=== PATIENT | female | born 1980 | race Caucasian/White ===

== ENCOUNTER 2020-02-08 17:26 | Emergency (ER) | payer OTHER, SELFPAY ==
[2020-02-08 17:28] VITALS: BP 124/86; PULSE 79; RESP 16; TEMP 36.1; O2SAT 99; BMI 19.5
[2020-02-08 17:31] VITALS: BP 124/86; PULSE 90; RESP 16; TEMP 36.1; O2SAT 99
--- NOTE | 2020-02-08 17:57 | EKG12_ITS ---
Test Reason : CP Blood Pressure : / mmHG Vent. Rate : 068 BPM Atrial Rate : 068 BPM P-R Int : 154 ms QRS Dur : 118 ms QT Int : 440 ms P-R-T Axes : 053 093 046 degrees QTc Int : 467 ms Normal sinus rhythm Right bundle branch block Abnormal ECG Confirmed by JASIEL IGLESIAS, MARY GRACE ([id number]), publications editor MILIND HICKMAN ([id number]) on 02/12/2020 9:43:24 AM Referred By: Confirmed By:MARY GRACE WEATHERS MD
--- NOTE | 2020-02-08 18:30 | RAD_ITS ---
STUDY: X-RAY CHEST REASON FOR EXAM: Female, 39 years old. C/O HEART PALPITATIONS, SOB, H/A TECHNIQUE: Single AP portable view of the chest. COMPARISON: None. FINDINGS: The lungs are clear and expanded. There is no demonstrated pleural abnormality. Normal size heart. Normal mediastinum and mae. Normal visualized pulmonary arteries. Normal visualized aortic arch and descending thoracic aorta. Normal visualized thoracic spine. Normal visualized ribs, clavicles, and shoulders. There is no demonstrated abnormality of the visualized soft tissue structures of the upper abdomen. RAD/Chest 1 View (Portable) IMPRESSION: Normal x-ray examination of the chest. Electronically Signed: Dianelys Kohli MD at 19:31 EST Tel , Service support ,
[2020-02-08 19:01] VITALS: BP 154/89; PULSE 67; RESP 18; TEMP 36.1; O2SAT 98
--- NOTE | 2020-02-08 19:08 | ED.VIS.GEN ---
History of Present Illness Chief Complaint: Shortness of Breath Informant: Patient Onset: Today Context: Gradual Onset Timing: Continuous Quality: Sharp Location: Central chest pain Current Severity: Minimal discomfort presently Maximum Severity: Moderate Worsened by: Supine position Relieved by: Nothing Associated Symptoms: Probable Covid infection 2 weeks ago Narrative: Patient is a 39-year-old former smoker who presents because of chest discomfort that radiates to her left shoulder associate with shortness of breath and is positional. States pain is worse when she is supine. She denies dyspnea on exertion. She denies orthopnea or PND. She denies pleuritic chest pain. She presently denies rhinorrhea, congestion or sore throat. She states her taste and smell has returned to normal. She does report global headache. Denies photophobia, neck pain or neck stiffness. She presently denies myalgias arthralgias. She denies nausea or vomiting. She denies diarrhea. She denies urologic symptoms. She denies rash. Denies history of VTE. She denies leg pain, swelling discoloration. She has no risk factors for VTE. Prior similar symptoms: No Recent Illness/Hospitalization: Yes - Probable Covid infection - Past Medical History (1) No significant past medical history Status: Acute Past Medical History - Allergies and Home Meds Allergies/Adverse Reactions: Allergies No Known Allergies Allergy (Verified 02/20/14 09:51) Primary Care Physician: Kaleigh Corral MD [Primary Care Provider] - Past Medical History: None Surgical History: noncontributory Lives: With Family Smoking Status: Former smoker Alcohol: None Drugs: None Review of Systems General: Denies: Chills, Fever, Malaise, Subjective, Sweats Eyes: Denies: Visual changes - bilaterally, Blurred Vision - bilaterally ENT: Denies: Bilateral ear pain, Rhinorrhea, Sore throat Cardiovascular: Reports: Chest pain. Denies: Palpitations, Heart racing Respiratory: Reports: Dyspnea. Denies: Cough, Sputum, Dyspnea on exertion, Orthopnea, Paroxysmal nocturnal dyspnea Gastrointestinal: Denies: Abdominal pain, Nausea, Vomiting, Diarrhea, Melena, Hematochezia Genitourinary: Denies: Dysuria, Hematuria, Frequency Musculoskeletal: Denies: Myalgias, Arthralgias, Neck pain, Back pain, Swelling, Extremity Pain, -, - Skin: Denies: Rash, Wounds Psych: Denies: Depression, Anxiety Endocrine: Denies: Polyuria, Polydipsia Hematologic: Denies: Easy bruising, Easy bleeding Allergy: Denies: Uticaria, Swelling of the mouth Physical Exam Vital Signs/Narrative: Vital Signs Temp Pulse Resp BP Pulse Ox 02/08/20 19:01 96.9 F L 67 18 154/89 H 98 02/08/20 17:31 96.9 F L 90 16 124/86 H 99 02/08/20 17:28 96.9 F L 79 16 124/86 H 99 General: Well nourished, Well developed, No Acute Distress Head: Normocephalic, Atraumatic Eyes: Perrl, EOMI. Negative for: Pale conjunctiva, Scleral icterus ENT: Moist mucous membranes, No rhinorrhea, TM's clear Neck: Supple, Nontender, No lymphadenopathy, No JVD, - - Trachea is midline. There is no inspiratory expiratory stridor. Cardiovascular: Regular rate, Regular rhythm, No murmurs, Normal S1, Normal S2 Respiratory: No distress, CTA bilaterally, Chest nontender Abdomen: Soft, Nontender, Nondistended, Normal bowel sounds Extremities: Nontender, No edema, - - There is no asymmetry, swelling, discoloration, leg vein distention, palpable cords or tenderness along the distribution of the deep venous system. Skin: Normal color, No rash, No Trauma. Negative for: Cyanosis, Diaphoresis, Jaundice Neurological: Alert, Oriented x3, Cranial nerves II-XII grossly intact, Normal Strength, Normal Sensation Psychological: Depressed Diagnostic/Tx/Re-eval Chest X-Ray - ED: 1 View, Read by ED Physician, Normal, Heart, Mediastinum, Bony Structures, No Acute Disease, - - Extremities interpreted by me at 1924. Patient has slight hyper aeration. There is no infiltrate, effusion or pneumothorax. Cardiac silhouette is normal. Cardiac size is normal. Impressions Chest X-Ray 02/08/20 18:30 IMPRESSION: Normal x-ray examination of the chest. Electronically Signed: Dianelys Kohli MD at 19:31 EST Tel , Service support , 02/08/20 18:30 Chest 1 View (Portable) [RAD] Stat Laboratory Results 02/08/20 02/08/20 02/08/20 18:58 18:58 18:58 WBC 8.8 RBC 4.38 Hgb 12.9 Hct 39.9 MCV 91.1 MCH 29.5 MCHC 32.3 RDW Std Deviation 42.8 RDW Coeff of [place] 12.7 Plt Count 200 MPV 10.6 Immature Gran % (Auto) 0.300 Neut % (Auto) 64.0 Lymph % (Auto) 25.8 Morton % (Auto) 8.8 Eos % (Auto) 0.8 Baso % (Auto) 0.3 Absolute Neuts (auto) 5.6 Absolute Lymphs (auto) 2.28 Nucleated RBC % 0 ESR 2 PT 13.0 INR 1.0 Sodium 139 Potassium 3.3 L Chloride 110 H Carbon Dioxide 21.0 Anion Gap 8 BUN 10 Creatinine 0.60 Estim Creat Clear Calc 116.26 Est GFR (MDRD) Af Amer 143 Est GFR (MDRD) Non-Af 118 BUN/Creatinine Ratio 16.6 Glucose 87 Calcium 9.2 Troponin I < 0.015 Since work-up is negative. ESR is negative. - EKG Initial EKG Interpretation: Sinus Rhythm - Sinus rhythm with a ventricular rate of 68. There is evidence of right bundle branch block. ME interval is 154 ms. Durations 118 ms. QT duration 4 and 40 ms. [place] to the right. - Medical Decision Making With chest pain that radiates to left shoulder trapezius area and is worse when she is supine need to obtain possibility of pericarditis, myocarditis. This may be noncardiac in etiology as well. Chest x-ray was obtained to evaluate for pulmonary etiology. Appropriate blood work was ordered as well. ED Disposition - Plan for ED Patient: Disposition: Home or Assisted Living Diagnosis: Dyspnea due to COVID-19, Chest pain Instructions: ED Dyspnea Referrals: Kaleigh Corral MD [Primary Care Provider] - 10-14 Days if not better Additional Instructions: Aced on your symptoms and started 2 weeks ago you probably had Covid. Your symptoms presently may be due to Covid and you may have symptoms for potentially several weeks to months.
[2020-02-08 19:23] LABS: Absolute Lymphocyte Count 2.28 X10^3/uL (0.83-4.51); Absolute Neutrophil Count 5.6 X10^3/uL (2.0-7.7); Basophil# 0.03 X10^3/uL; Basophil% 0.3 % (0-1); Eosinophil# 0.07 X10^3/uL; Eosinophils% 0.8 % (0-5); Hematocrit 39.9 % (37-47); Hemoglobin 12.9 g/dL (12.0-15.0); Lymphocyte # 2.28 X10^3/ul (4.0); Lymphocyte % 25.8 % (19-41); Mean Corp Hgb Conc 32.3 g/dL (32-36); Mean Corpuscular Hgb 29.5 pg (27.0-32.0); Mean Corpuscular Volume 91.1 fL (81-99); Mean Platelet Vol. 10.6 fl (6.2-12.0); Monocyte# 0.78 X10^3/uL; Monocyte% 8.8 % (0-10); NRBC Flagged by Analyzer 0 % (0-5); Neutrophil # 5.64 X10^3/uL (2.7-7.7); Platelet Count 200 K/mm3 (150-450); RBC Distribution Width CV 12.7 % (11.6-14.6); RBC Distribution Width SD 42.8 fl (35.1-43.9); Red Blood Count 4.38 M/mm3 (4.2-5.4); White Blood Count 8.8 K/mm3 (4.4-11.0)
[2020-02-08 19:29] LABS: Erythrocyte Sedimentation Rate 2 mm/hr (0-20)
[2020-02-08 19:47] VITALS: O2SAT 97
[2020-02-08 20:00] LABS: Anion Gap 8 (5-15); BUN 10 mg/dL (7-18); BUN/Creat Ratio 16.6 RATIO (10-20); Calcium,Total 9.2 mg/dL (8.5-10.1); Chloride 110 mmol/L (98-107); EST Glomerular Filtration Rate 118 mL/min (>60); Est Glom Filt Rate - Afr Amer 143 mL/min (>60); Estimated Creatinine Clearance 116.26 ml/min; Glucose 87 mg/dL (74-106); Potassium 3.3 mmol/L (3.5-5.1); Sodium Level 139 mmol/L (136-145)
[2020-02-08 20:10] VITALS: BP 136/86; PULSE 66; RESP 16; O2SAT 97
[2020-02-08 21:24] VITALS: BP 137/85; PULSE 71; RESP 15; O2SAT 96
== END 2020-02-08 21:31 | disposition home or self-care (01) ==
PROVIDERS: Emergency Provider Emergency Medicine; PCP Internal Medicine
DX: R06.00 Dyspnea, unspecified (principal); R07.89 Other chest pain; R51.9 Headache, unspecified; Z20.828 Contact with and (suspected) exposure to other viral communicable diseases; Z87.891 Personal history of nicotine dependence
CPT/HCPCS: 71045; 80048; 84484; 85025; 85610; 85652; 93005; 99284; A4216